=== PATIENT | male | born 1995 | race Caucasian/White ===

== ENCOUNTER 2022-11-26 05:10 | Emergency (ER) | payer SELFPAY ==
[~2022-11-26] VITALS: Ht 175.3 cm; Wt 74.8 kg
[2022-11-26] MEDS ORDERED: ONDANSETRON HCL/PF 4 MG/2 ML VIAL ONE (06:17)
[2022-11-26] MEDS ORDERED: IV NS 0.9% 1,000 ML IV ONE (06:30)
[2022-11-26] MEDS ORDERED: ONDANSETRON HCL/PF 4 MG/2 ML VIAL IV ONE (06:30)
[2022-11-26] MEDS ORDERED: CIPR-262 PO (06:49)
[2022-11-26] MEDS ORDERED: ONDA4TAB5 PO (06:49)
[2022-11-26] MEDS ORDERED: METR500T PO (06:49)
[2022-11-26 07:05] VITALS: BP 110/62; TEMP 98.3; O2SAT 100
== END 2022-11-26 07:05 | disposition home or self-care (01) ==
LOC: ER 05:22
DX: R19.7 Diarrhea, unspecified (principal); R10.9 Unspecified abdominal pain; R11.2 Nausea with vomiting, unspecified
CPT/HCPCS: 99283; 96374; 96361; J2405; J7030